=== PATIENT | male | born 1995 | race Caucasian/White ===

== ENCOUNTER 2017-03-24 16:22 | Emergency (ER) | payer SELFPAY ==
--- NOTE | ~2017-03-24 | CT114 ---
[facility] A Service of [facility] RADIOLOGY TEXT RESULTS PATIENT: WOLFGANG LEYVA LOCATION: SED : [birth year] UNIT #: [id number] AGE: [address]: Kai Maya MD SEX: M ORDER DR: [id number] [place] [id number] E MR#: [id number] #: [id number] NAME: WOLFGANG LEYVA : 1995 SEX: M STUDY DATE/TIME: 03/24/2017 17:56 UNIT: SED ROOM: STUDY DESCRIPTION: CT Soft Tissue Neck W Cont Attending Physician: Kai Maya M.D. Ordering Physician: Ezequiel Clay P.A.-C. Primary Care Physician: No Primary Care Physician MEDICAL IMAGING REPORT This report is preliminary unless electronic signature is present. EXAM CT scan of the neck with contrast. INDICATION Right lower tooth abscess for 2 weeks. Fever and elevated white blood cell count. TECHNIQUE CT scan of the soft tissues of the neck was performed following the administration of IV contrast. Coronal and sagittal reformatted images were obtained. This CT exam was performed with one or more of the following radiation dose reduction techniques: automatic exposure control, adjustment of mA and/or kV according to patient size, and iterative reconstruction. COMPARISON No comparison studies are available. FINDINGS There is a large amount of inflammatory stranding centered around the patient's right mandible. There is skin thickening, stranding within the fat, and there is also some fluid/phlegmon surrounding the right mandible. Approximate size on a desk representative axial image (image 30 is about 4.9 x 3.1 cm). The inflammation/phlegmon/fluid is surrounding the right side of the mandible and also extends inferiorly. There are adjacent enlarged reactive lymph nodes within the region anterior to the submandibular gland and also in the submental area. Review of bony windows shows no obvious bony destruction. The nasopharyngeal structures are unremarkable. The tonsillar structures are unremarkable. The hypopharynx and larynx are unremarkable. There is a small subcentimeter nodule in the right thyroid gland. The visualized paranasal sinuses are clear. The lung apices are clear. STS. [facility] A Service of [facility] RADIOLOGY TEXT RESULTS PATIENT: WOLFGANG LEYVA LOCATION: SED : [birth year] UNIT #: [id number] AGE: [address]: Kai Maya MD SEX: M ORDER DR: IMPRESSION There is a large amount of inflammatory stranding, phlegmonous material, and probably some fluid with peripheral enhancement centered around the right side of the mandible as described above. This is most in keeping with the patient's history of a right lower tooth abscess. The above-mentioned inflammatory change/fluid/phlegmon does extend to both sides of the mandible and also inferiorly and measures on the desk representative axial slice approximately 4.9 x 3.1 cm. There is no obvious adjacent bony destruction noted. There are some reactive enlarged lymph nodes within the region. Dictated by... Rohit Avilez M.D. THIS IS AN ELECTRONICALLY VERIFIED REPORT Rohit Avilez M.D. at 03/29/2017 1:32 PM ROYER/michelle TD: 03/25/2017 04:51 JOB #: [id number] MEDICAL IMAGING REPORT Page 1 of 1
[~2017-03-24 16:22] MED LIST: BENADRYL PO; CORTIZONE-10 AN28 GM TOP
[2017-03-24] MEDS ORDERED: AMOXILLIN PO (16:27)
[2017-03-24 17:26] LABS: BASOPHIL# 0.1 X10e3 (0-0.3); BASOPHIL% 0.5 % (0-2.5); EOSINOPHIL% 0.2 % (0.0-7.0); HEMATOCRIT 44.5 % (38.0-50.0); HEMOGLOBIN 15.6 gm/dL (13.0-16.0); LYMPHOCYTE% 6.3 % (17.0-45.0); MEAN CELL VOLUME 88.5 FL (83-96); MEAN PLATELET VOLUME 7.2 FL (6.5-11.5); MONOCYTE# 1.4 X10e3 (0-1.0); MONOCYTE% 9.3 % (3.0-12.0); NEUTROPHIL# 12.9 X10e3 (1.5-7.1); NEUTROPHIL% 83.7 % (40-75); PLATELET COUNT 223 X10e3 (140-420); RED BLOOD COUNT 5.03 X10e (3.90-5.60); RED CELL DISTRIBUTION WIDTH 12.5 % (11.0-15.5); WHITE BLOOD COUNT 15.4 X10e3 (4.0-10.5)
[2017-03-24 17:28] LABS: DIFF IND NO
[2017-03-24 17:45] LABS: BUN/CREATININE RATIO 13.75; CALCIUM SERUM 9.6 mg/dL (8.4-10.2); CREATININE SERUM 0.8 mg/dL (0.6-1.4); GLOM FILT RATE Estimated 129.6 mL/min (>60)
== END 2017-03-24 20:22 | disposition home or self-care (01) ==
LOC: SED 16:22
PROVIDERS: Physician Assistant
DX: K04.7 Periapical abscess without sinus (principal); Z88.0 Allergy status to penicillin; F17.200 Nicotine dependence, unspecified, uncomplicated
CPT/HCPCS: 70491; 80048; 85025; 96361; 96365; 96375; 99283; J1885; J2405; Q9967

== ENCOUNTER 2017-03-25 20:02 | Emergency (ER) | payer OTHER ==
[~2017-03-25 20:02] MED LIST changes: +AMOXILLIN PO
[2017-03-25 21:10] LABS: BASOPHIL# 0.1 X10e3 (0-0.3); BASOPHIL% 0.5 % (0-2.5); EOSINOPHIL# 0.2 X10e3 (0-0.7); EOSINOPHIL% 1.1 % (0.0-7.0); HEMATOCRIT 38.5 % (38.0-50.0); LYMPHOCYTE# 1.5 X10e3 (1.0-3.5); LYMPHOCYTE% 11.1 % (17.0-45.0); MEAN CORPUSCULAR HEMOGLOBIN 30.6 PG (28-34); MEAN CORPUSCULAR HGB CONC 34.8 g/dL (30-36); MEAN PLATELET VOLUME 7.1 FL (6.5-11.5); MONOCYTE# 1.4 X10e3 (0-1.0); MONOCYTE% 10.5 % (3.0-12.0); NEUTROPHIL# 10.3 X10e3 (1.5-7.1); NEUTROPHIL% 76.8 % (40-75); PLATELET COUNT 208 X10e3 (140-420); RED BLOOD COUNT 4.38 X10e (3.90-5.60); RED CELL DISTRIBUTION WIDTH 12.2 % (11.0-15.5); WHITE BLOOD COUNT 13.4 X10e3 (4.0-10.5)
[2017-03-25 21:12] LABS: DIFF IND NO; HEMOGLOBIN 13.4 gm/dL (13.0-16.0)
[2017-03-25 21:27] LABS: ALBUMIN SERUM 3.5 g/dL (3.5-5.0); BILIRUBIN,TOTAL 0.9 mg/dL (0.2-2.0); CALCIUM SERUM 9.2 mg/dL (8.4-10.2); CREATININE SERUM 0.8 mg/dL (0.6-1.4); GLOM FILT RATE Estimated 129.6 mL/min (>60); POTASSIUM 3.1 mmol/L (3.5-5.1); PROTEIN TOTAL SERUM 7.1 g/dL (6.0-8.3)
== END 2017-03-26 01:36 | disposition hospice, home (50) ==
LOC: SED 20:02
PROVIDERS: Nurse Practitioner
DX: K12.2 Cellulitis and abscess of mouth (principal); F17.210 Nicotine dependence, cigarettes, uncomplicated; Z79.2 Long term (current) use of antibiotics
CPT/HCPCS: 36415; 80053; 85025; 96365; 96375; 99285; J1170; J2405